=== PATIENT | female | born 1980 ===

== ENCOUNTER 2016-10-29 16:45 | Emergency (ER) | payer MEDICAID, OTHER ==
[2016-10-29 17:07] VITALS: BP 122/74; RESP 18; TEMP 98.7; O2SAT 100
--- NOTE | 2016-10-29 17:57 | ED PDOC ---
Upper Extremity Pain/Injury Time Seen by Provider: 10/29/16 17:25 Chief Complaint (Nursing): Upper Extremity Problem/Injury Chief Complaint (Provider): Upper Extremity Problem/Injury History Per: Patient History/Exam Limitations: no limitations Onset/Duration Of Symptoms: Days (x2) Additional Complaint(s): 17:25 Fay Stanley, 36 year old female presents to the ED on 10/29/16 with atraumatic left shoulder pain radiating down her left arm beginning 2 days prior to arrival. The patient states that initially, the pain and numbness was localized to the left third and fourth digits on her left hand. The patient denies any history of trauma or chest pain. Of note, the patient is right hand dominant. Past Medical History Reviewed: Historical Data, Nursing Documentation, Vital Signs Vital Signs: Last Vital Signs Temp 98.7 F 10/29/16 17:04 Pulse 74 10/29/16 17:04 Resp 18 10/29/16 17:04 BP 122/74 10/29/16 17:04 Pulse Ox 100 10/29/16 17:04 - Medical History PMH: Asthma - Family History Family History: States: Unknown Family Hx - Home Medications Home Medications: Ambulatory Orders Medication Instructions Recorded Ibuprofen [Motrin Tab] 800 mg PO Q8 PRN #15 tab 10/29/16 - Allergies Allergies/Adverse Reactions: Allergies Allergy/AdvReac Type Severity Reaction Status Date / Time No Known Allergies Allergy Verified 10/29/16 17:04 Review of Systems Constitutional: Negative for: Other (no history of trauma) Cardiovascular: Negative for: Chest Pain Musculoskeletal: Positive for: Shoulder Pain (left ), Arm Pain (left arm) Neurological: Positive for: Numbness (and tingling to 3rd and 4th digit on left hand) Physical Exam - Reviewed Nursing Documentation Reviewed: Yes Vital Signs Reviewed: Yes - Physical Exam Appears: Positive for: Non-toxic, No Acute Distress Head Exam: Positive for: ATRAUMATIC, NORMOCEPHALIC Skin: Positive for: Normal Color, Warm, Dry Eye Exam: Positive for: Normal appearance ENT: Positive for: Normal ENT Inspection Neck: Positive for: Normal, Painless ROM Cardiovascular/Chest: Positive for: Regular Rate, Rhythm, Chest Non Tender Respiratory: Positive for: Normal Breath Sounds. Negative for: Respiratory Distress Gastrointestinal/Abdominal: Positive for: Normal Exam, Soft. 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 Negative for: Tenderness, Swelling Neurologic/Psych: Positive for: Alert, Oriented (x3) - ECG ECG Rhythm: Positive for: Sinus Rhythm. Negative for: ST/T Changes (no changes) Rate: 66 O2 Sat by Pulse Oximetry: 100 (RA) Pulse Ox Interpretation: Normal - Radiology X-Ray: Interpreted by Me (Shoulder x-ray) X-Ray Interpretation: No Acute Disease - Progress ED Course And Treament: Shoulder placed in sling applied by RN. Medical Decision Making Medical Decision Makin:25 Initial Impression: Atraumatic Left shoulder pain radiating down left arm Initial Plan * Motrin Tab 800 mg PO STAT * Shoulder Left [RAD] * Reevaluation Scribe Attestation: Documented by Bernarda Sanchez, acting as a scribe for Rayo Solis PA-C. Provider Scribe Attestation: All medical record entries made by the Scribe were at my direction and personally dictated by me. I have reviewed the chart and agree that the record accurately reflects my personal performance of the history, physical exam, medical decision making, and the department course for this patient. I have also personally directed, reviewed, and agree with the discharge instructions and disposition. Disposition - Clinical Impression Clinical Impression: Shoulder pain - Patient ED Disposition Is Patient to be Admitted: No - Disposition Referrals: [facility] [Outside] [facility] [Outside] Disposition: Routine/Home Disposition Time: 19:00 Condition: STABLE Prescriptions: Ibuprofen [Motrin Tab] 800 mg PO Q8 PRN #15 tab PRN Reason: pain Instructions: Shoulder Pain (ED) Print Language: GEORGIAN
[2016-10-29 18:05] VITALS: PULSE 66
--- NOTE | 2016-10-30 09:30 | RAD ---
PROCEDURE: Radiographs of the Left Shoulder HISTORY: pain COMPARISON: No prior. FINDINGS: BONES: Normal. No fracture. JOINTS: Normal. Glenohumeral and acromioclavicular joints preserved. No osteoarthritis. SOFT TISSUES: Normal. OTHER FINDINGS: None. IMPRESSION: Normal radiographs of the left shoulder. If symptoms persist or occult fracture suspected clinically consider followup radiographs 5-10 days as most fractures should become radiographically evident in this timeframe. Alternatively, MRI could be performed.
== END 2016-10-29 19:36 | disposition home or self-care (01) ==
LOC: H.ER 16:45
DX: M25.512 Pain in left shoulder (principal); J45.909 Unspecified asthma, uncomplicated